=== PATIENT | female | born 1940 | race Caucasian/White ===

== ENCOUNTER 2019-03-01 16:27 | Emergency (ER) | payer MEDICARE, SELFPAY ==
[2019-03-01 16:38] VITALS: BP 163/61; PULSE 72; RESP 16; TEMP 36.7; O2SAT 100
--- NOTE | 2019-03-01 17:21 | DI.CT.S_ITS ---
PROCEDURE: CT CERVICAL SPINE WO CON INDICATIONS: fall + etoh TECHNIQUE: Noncontrast 3 mm thick sections acquired from the skull base to the T4 level. Sagittal and coronal reformats were then constructed. For radiation dose reduction, the following was used: automated exposure control, adjustment of mA and/or kV according to patient size. COMPARISON: 09/12/13. FINDINGS: Image quality: Excellent. Bones: No fractures or dislocations. Visualized superior ribs are intact. Multilevel cervical spondylosis. Craniocervical junction is intact. Soft tissues: Prevertebral soft tissues are normal in thickness. No paravertebral hematomas. No apical pneumothoraces. IMPRESSION: Cervical spine without acute fracture or malalignment. Dictated by: Jitendra Muniz M.D. on 03/01/2019 at 18:52 Approved by: Jitendra Muniz M.D. on 03/01/2019 at 18:54
--- NOTE | 2019-03-01 17:21 | DI.RAD.S_ITS ---
PROCEDURE: XR CHEST 1V INDICATIONS: fall, +etoh TECHNIQUE: One view of the chest was acquired. COMPARISON: None. FINDINGS: Surgical changes and devices: None. Lungs and pleura: The mild diffuse interstitial prominence. No focal consolidation.. No pleural effusions or pneumothorax. Mediastinum: Mediastinal contours appear normal. Heart size is normal. Bones and chest wall: No suspicious bony lesions. Overlying soft tissues appear unremarkable. IMPRESSION: Mild diffuse interstitial prominence which may represent chronic interstitial process versus inflammatory/infectious process or early edema. No focal consolidation. Otherwise, no radiographic evidence for acute traumatic injuries. Dictated by: Jitendra Muniz M.D. on 03/01/2019 at 21:01 Approved by: Jitendra Muniz M.D. on 03/01/2019 at 21:04
--- NOTE | 2019-03-01 17:21 | DI.RAD.S_ITS ---
PROCEDURE: XR PELVIS 1-2V INDICATIONS: fall, +etoh TECHNIQUE: One view(s) of the pelvis acquired. COMPARISON: None. FINDINGS: Bones: No fractures or dislocations. No suspicious bony lesions. Soft tissues: Visualized bowel gas pattern is normal. No suspicious soft tissue calcifications. IMPRESSION: No acute fracture identified in this limited single view of the pelvis. Consider dedicated imaging of the hip if there is persistent clinical concern. Dictated by: Jitendra Muniz M.D. on 03/01/2019 at 21:00 Approved by: Jitendra Muniz M.D. on 03/01/2019 at 21:01
[2019-03-01 17:27] LABS: Add Manual Diff / Slide Review NO; Basophils Absolute Auto 0 /uL (0-100); Basophils Percent Auto 0.5 % (0-2); Eosinophils Absolute Auto 0 /uL (0-450); Eosinophils Percent Auto 0.4 % (2-4); Hematocrit 38.8 % (36-46); Hemoglobin 12.8 g/dL (12.0-16.0); Lymphocytes Absolute Auto 600 /uL (1100-4500); Lymphocytes Percent Auto 8.1 % (25-40); Mean Corpuscular HGB Conc 32.9 % (30-36); Mean Corpuscular Hemoglobin 30.9 PG (26-34); Mean Corpuscular Volume 93.7 fL (80-100); Monocytes Absolute Auto 600 /uL (0-900); Neutrophils Absolute Auto 5600 /uL (1500-7000); Platelet Count 296 X10^3/uL (150-400); Red Blood Cell Count 4.14 X10^6/uL (4.0-5.2); Red Cell Distribution Width 12.7 % (11.6-14.8); White Blood Cell Count 6.8 X10^3/uL (4.5-11.0)
[2019-03-01 17:31] LABS: Ethanol (ETOH) 14 mg/dL
[2019-03-01 17:32] LABS: Alanine Aminotransferase 36 IU/L (9-52); Albumin 4.2 g/dL (3.5-5.0); Albumin Globulin Ratio 1.3 (1.0-2.8); Alkaline Phosphatase 100 U/L (38-126); Aspartate Aminotransferase 42 IU/L (14-36); BUN Creatinine Ratio 13.3 (6-22); Bilirubin Total 0.6 mg/dL (0.2-1.3); Blood Urea Nitrogen 16 mg/dL (7-17); Calcium 9.1 mg/dL (8.4-10.2); Carbon Dioxide 22 mmol/L (22-32); Chloride 97 mmol/L (98-107); Creatine Kinase 141 U/L (30-135); Estimated Glomerular Filt Rate 43.4 mL/min (>60); Globulin 3.3 g/dL (1.7-4.1); Glucose 86 mg/dL (80-110); PTT Partial Thromboplastin Tim 27 SECONDS (26.4-36.2); Sodium 131 mmol/L (137-145); Total Protein 7.5 g/dL (6.3-8.2)
[2019-03-01 17:33] LABS: HEMOLYSIS 59 (0-50)
[2019-03-01 17:44] LABS: Troponin I < 0.012 ng/mL (0.01-0.034)
[2019-03-01 17:48] LABS: Creatine Kinase MB 2.76 ng/mL (<2.37)
[2019-03-01] MEDS: TET,DIPH,PERTUSS(ACELL),VAC/PF 0.5 ML SYRINGE IM (18:03)
--- NOTE | 2019-03-01 18:08 | DI.CT.S_ITS ---
PROCEDURE: CT HEAD/BRAIN WO CON INDICATIONS: falls, ?etoh TECHNIQUE: Noncontrast 4.5 mm thick angled axial sections acquired from the foramen magnum to the vertex, with coronal and sagittal reformats. For radiation dose reduction, the following was used: automated exposure control, adjustment of mA and/or kV according to patient size. COMPARISON: None. FINDINGS: Image quality: Excellent. CSF spaces: Basal cisterns are patent. No extra-axial fluid collections. The ventricles are symmetric in size and shape. Brain: No intracranial bleeds or masses. There is cerebral volume loss for age, with resultant ventricular and sulcal prominence. Stable encephalomalacia involving the left frontoparietal region. There are periventricular and deep white matter chronic small vessel ischemic changes. There is intracranial internal carotid artery atherosclerosis. Skull and face: Stable post surgical changes of left frontoparietal craniotomy. Calvarium and visualized facial bones appear intact, without suspicious lesions. Sinuses: Visualized sinuses and mastoids are clear. IMPRESSION: 1. CT head without acute intracranial abnormalities. 2. Stable postsurgical changes of the left frontoparietal region with associated encephalomalacia. 3. Stable age-related senescent changes and sequela of chronic small vessel ischemic disease. Dictated by: Jitendra Muniz M.D. on 03/01/2019 at 18:50 Approved by: Jitendra Muniz M.D. on 03/01/2019 at 18:52
[2019-03-01 18:09] LABS: Urine Amphetamines Negative (Negative); Urine Barbiturates Negative (Negative); Urine Benzodiazepines Negative (Negative); Urine Cocaine Negative (Negative); Urine MDMA Negative (Negative); Urine Methadone Negative (Negative); Urine Methamphetamines Negative (Negative); Urine Morphine/Opi cutoff 2000 Negative (Negative); Urine Oxycodone Positive (Negative); Urine Phencyclidine Negative (Negative); Urine Tetrahydrocannabinol Negative (Negative); Urine Tricyclic Antidepressant Negative (Negative)
[2019-03-01 19:30] VITALS: BP 158/52; PULSE 73; O2SAT 100
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
== END 2019-03-01 20:20 | disposition home or self-care (01) ==
PROVIDERS: Emergency Provider Nurse Practitioner Family; Family Provider Family Medicine; PCP Family Medicine
DX: S01.01XA Laceration without foreign body of scalp, initial encounter (principal); W19.XXXA Unspecified fall, initial encounter; R03.0 Elevated blood-pressure reading, without diagnosis of hypertension; F10.129 Alcohol abuse with intoxication, unspecified; F11.90 Opioid use, unspecified, uncomplicated; V89.2XXA Person injured in unspecified motor-vehicle accident, traffic, initial encounter; Z23 Encounter for immunization
CPT/HCPCS: 12001; 70450; 71045; 72125; 72170; 80053; 80305; 80320; 81003; 82550; 82553; 84484; 85025; 85610; 85730; 90471; 93005; 99283; 99285; 90715

== ENCOUNTER 2019-04-12 22:46 | Emergency (ER) | payer MEDICARE, SELFPAY ==
[2019-04-12 22:50] VITALS: BP 133/56; PULSE 79; RESP 18; TEMP 36.7; O2SAT 99
--- NOTE | 2019-04-12 23:02 | ED.FALL ---
HPI - Fall General Chief Complaint: Fall Stated Complaint: GLF, hit her head Time Seen by Provider: 04/12/19 23:01 Source: patient Mode of arrival: ambulatory Limitations: no limitations History of Present Illness HPI Narrative: Patient is a 79-year-old male who presents after ground level fall. He was actually upstairs visiting her she when she rolled out of bed hitting her head on the right side. No loss of consciousness. No sign of contusion no neck pain. She is a little confused. No other signs of injury or trauma. MD complaint: fall Onset (ago): minute(s) Fall from: out of bed Related Data Home Medications Medication Instructions Recorded Confirmed [estradiol cream] 0.01 % VAGINAL #0 08/22/17 Previous Rx's Medication Instructions Recorded hydrocodone-acetaminophen [[place]] 1 tab PO Q6H PRN #6 tab 08/24/16 Allergies Allergy/AdvReac Type Severity Reaction Status Date / Time clavulanic acid Allergy Unknown Unverified 02/05/18 11:52 [CLAVULANIC ACID] nitrofurazone [NITROFURAZONE] Allergy Unknown Unverified 02/05/18 11:52 Review of Systems Review of Systems GENERAL: Denies chills, fatigue, malaise, fever, sweats, travel HEENT: Denies sinus pain, ear pain, sore throat, difficulty swallowing, neck pain RESPIRATORY: Denies dyspnea, cough, wheezing, hemoptysis, sputum. CARDIOVASCULAR: Denies chest pain, palpitations, orthopnea, edema GASTROINTESTINAL: Denies nausea, vomiting, abdominal pain, diarrhea, constipation, melena. : Denies dysuria, frequency, incontinence, hematuria, urinary retention, flank pain. MUSCULOSKELETAL: Denies weakness, joint pain, or bony pain SKIN: No rash, no erythema, no pruritus NEUROLOGIC: See HPI PSYCHIATRIC: No concerning psychosocial issues. 12 point review of systems is negative except for those stated above and HPI Exam Initial Vital Signs Initial Vital Signs: Vital Signs Temperature 98.0 F 04/12/19 22:50 Pulse Rate 79 04/12/19 22:50 Respiratory Rate 18 04/12/19 22:50 Blood Pressure 133/56 L 04/12/19 22:50 Pulse Oximetry 99 04/12/19 22:50 GENERAL: Alert well-appearing elderly female and in no acute distress. HEENT: Head atraumatic, no sign of contusion abrasion depression EOMI, pupils reactive, face symmetric, moist mucous membranes NECK: No vertebral tenderness no step-offs full range of motion CARDIOVASCULAR: Regular rate and rhythm without murmurs, rubs or gallops. RESPIRATORY: Breath sounds equal bilaterally, no wheezes rales or rhonchi. ABDOMEN: Soft, nontender. Normoactive bowel sounds all 4 quadrants. No guarding or rebound. EXTREMITIES: Normal range of motion, no clubbing or edema. Neurovascularly intact NEUROLOGICAL: Alert and oriented x4.Normal gait and speech. Cranial nerves II through XII grossly intact. Supervisor Cell [employer]fficiency strength equal bilaterally able to push and pull equally lower extremity strength equal SKIN: Warm, dry, no laceration, no petechiae, no rashes or lesions. [facility] Medical History Hyperlipidemia (Acute) Hypertension (Acute) Surgical History Status post appendectomy Status post tonsillectomy and adenoidectomy Social History Smoking Status: Never smoker Social History Smoking Status: Never smoker Course Orders Ordered: ED Orders 04/12/19 23:07 CT head/brain wo con Stat Discontinued Medications Acetaminophen (Tylenol) 650 mg PO NOW ONE Stop: 04/12/19 23:08 Last Admin: 04/13/19 00:04 Dose: 650 mg Vital Signs - 8 hr 04/12/19 22:50 04/13/19 00:05 Temperature 98.0 F Pulse Rate 79 78 Respiratory Rate 18 14 Blood Pressure 133/56 L 131/66 Pulse Oximetry 99 97 MDM - Fall Imaging Data CT scan - head: 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 Narrative Medical decision making narrative: Patient ambulatory to the restroom without any difficulty. There is really no sign of trauma. This time she is appropriate to return back to her 's room. Discharge Plan Departure Patient Disposition: Home Clinical Impression: Head injury Qualifiers: Encounter type: initial encounter Qualified Code(s): S09.90XA - Unspecified injury of head, initial encounter Discharge Date/Time: 04/13/19 00:05 Interventions: ED Discharge Assessment Last Done: 04/13/19 00:05 Instructions: Closed Head Injury Activity Restrictions/Additional Instructions: *You have been diagnosed with closed head injury *Continue to take medications as directed *Follow up with your primary care provider in 2-3 days *Return to ER if you should have increasing confusion, worsening headache or any new, worsening or concerning symptoms Prescriptions: No Action hydrocodone-acetaminophen [P[place]] 5 MG/325 MG tablet 1 tab PO Q6H PRNQty: 6 RF: 0 [estradiol cream] 0.01 % Vaginal Qty: 0 RF: 0 Referrals: Bo Henson MD [Primary Care Provider] -
--- NOTE | 2019-04-12 23:07 | DI.CT.S_ITS ---
PROCEDURE: CT HEAD/BRAIN WO CON INDICATIONS: fall hit head TECHNIQUE: Noncontrast 4.5 mm thick angled axial sections acquired from the foramen magnum to the vertex, with coronal and sagittal reformats. For radiation dose reduction, the following was used: automated exposure control, adjustment of mA and/or kV according to patient size. COMPARISON: [facility], CT, CT HEAD/BRAIN WO CON, 03/01/2019, 18:19. FINDINGS: Image quality: Excellent. CSF spaces: Basal cisterns are patent. No extra-axial fluid collections. The ventricles are symmetric in size and shape. Brain: No intracranial bleeds or masses. There is cerebral volume loss for age, with resultant ventricular and sulcal prominence. There are periventricular and deep white matter chronic small vessel ischemic changes. 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 There is intracranial internal carotid artery atherosclerosis. Skull: Postsurgical changes compatible with prior left frontal-temporal craniotomy are stable. The visualized facial bones appear intact, without suspicious lesions. Sinuses: Visualized sinuses and mastoids are clear. IMPRESSION: No acute intracranial disease process. Dictated by: Inga Appiah MD, PhD on 04/13/2019 at 7:37 Approved by: Inga Appiah MD, PhD on 04/13/2019 at 7:39
[2019-04-13] MEDS: ACETAMINOPHEN 325 MG TABLET 650 MG PO (00:04)
[2019-04-13 00:05] VITALS: BP 131/66; PULSE 78; RESP 14; O2SAT 97
--- NOTE | 2019-04-13 00:09 | ED_ITS ---
HPI - Fall General Chief Complaint: Fall Stated Complaint: GLF, hit her head Time Seen by Provider: 04/12/19 23:01 Source: patient Mode of arrival: ambulatory Limitations: no limitations History of Present Illness HPI Narrative: Patient is a 79-year-old male who presents after ground level fall. He was actually upstairs visiting her she when she rolled out of bed hitting her head on the right side. No loss of consciousness. No sign of contusion no neck pain. She is a little confused. No other signs of injury or trauma. MD complaint: fall Onset (ago): minute(s) Fall from: out of bed Related Data Home Medications Medication Instructions Recorded Confirmed [estradiol cream] 0.01 % VAGINAL #0 08/22/17 Previous Rx's Medication Instructions Recorded hydrocodone-acetaminophen [[place]] 1 tab PO Q6H PRN #6 tab 08/24/16 Allergies Allergy/AdvReac Type Severity Reaction Status Date / Time clavulanic acid Allergy Unknown Unverified 02/05/18 11:52 [CLAVULANIC ACID] nitrofurazone [NITROFURAZONE] Allergy Unknown Unverified 02/05/18 11:52 Review of Systems Review of Systems GENERAL: Denies chills, fatigue, malaise, fever, sweats, travel HEENT: Denies sinus pain, ear pain, sore throat, difficulty swallowing, neck pain RESPIRATORY: Denies dyspnea, cough, wheezing, hemoptysis, sputum. CARDIOVASCULAR: Denies chest pain, palpitations, orthopnea, edema GASTROINTESTINAL: Denies nausea, vomiting, abdominal pain, diarrhea, constipation, melena. : Denies dysuria, frequency, incontinence, hematuria, urinary retention, flank pain. MUSCULOSKELETAL: Denies weakness, joint pain, or bony pain SKIN: No rash, no erythema, no pruritus NEUROLOGIC: See HPI PSYCHIATRIC: No concerning psychosocial issues. 12 point review of systems is negative except for those stated above and HPI Exam Initial Vital Signs Initial Vital Signs: Vital Signs Temperature 98.0 F 04/12/19 22:50 Pulse Rate 79 04/12/19 22:50 Respiratory Rate 18 04/12/19 22:50 Blood Pressure 133/56 L 04/12/19 22:50 Pulse Oximetry 99 04/12/19 22:50 GENERAL: Alert well-appearing elderly female and in no acute distress. HEENT: Head atraumatic, no sign of contusion abrasion depression EOMI, pupils reactive, face symmetric, moist mucous membranes NECK: No vertebral tenderness no step-offs full range of motion CARDIOVASCULAR: Regular rate and rhythm without murmurs, rubs or gallops. RESPIRATORY: Breath sounds equal bilaterally, no wheezes rales or rhonchi. ABDOMEN: Soft, nontender. Normoactive bowel sounds all 4 quadrants. No guarding or rebound. EXTREMITIES: Normal range of motion, no clubbing or edema. Neurovascularly intact NEUROLOGICAL: Alert and oriented x4.Normal gait and speech. Cranial nerves II through XII grossly intact. Translator strength equal bilaterally able to push and pull equally lower extremity strength equal SKIN: Warm, dry, no laceration, no petechiae, no rashes or lesions. [facility] Medical History Hyperlipidemia (Acute) Hypertension (Acute) Surgical History Status post appendectomy Status post tonsillectomy and adenoidectomy Social History Smoking Status: Never smoker Social History Smoking Status: Never smoker Course Orders Ordered: ED Orders 04/12/19 23:07 CT head/brain wo con Stat Discontinued Medications Acetaminophen (Tylenol) 650 mg PO NOW ONE Stop: 04/12/19 23:08 Last Admin: 04/13/19 00:04 Dose: 650 mg Vital Signs - 8 hr 04/12/19 22:50 04/13/19 00:05 Temperature 98.0 F Pulse Rate 79 78 Respiratory Rate 18 14 Blood Pressure 133/56 L 131/66 Pulse Oximetry 99 97 MDM - Fall Imaging Data CT scan - head: 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 There is really no sign of trauma. This time she is appropriate to return back to her 's room. Discharge Plan Departure Patient Disposition: Home Clinical Impression: Head injury Qualifiers: Encounter type: initial encounter Qualified Code(s): S09.90XA - Unspecified injury of head, initial encounter Discharge Date/Time: 04/13/19 00:05 Interventions: ED Discharge Assessment Last Done: 04/13/19 00:05 Instructions: Closed Head Injury Activity Restrictions/Additional Instructions: *You have been diagnosed with closed head injury *Continue to take medications as directed *Follow up with your primary care provider in 2-3 days *Return to ER if you should have increasing confusion, worsening headache or any new, worsening or concerning symptoms Prescriptions: No Action hydrocodone-acetaminophen [[place]] 5 MG/325 MG tablet 1 tab PO Q6H PRNQty: 6 RF: 0 [estradiol cream] 0.01 % Vaginal Qty: 0 RF: 0 Referrals: Bo Henson MD [Primary Care Provider] -
== END 2019-04-13 00:05 | disposition home or self-care (01) ==
PROVIDERS: Emergency Provider Emergency Medicine; Family Provider Family Medicine; PCP Family Medicine
DX: S09.90XA Unspecified injury of head, initial encounter (principal); W06.XXXA Fall from bed, initial encounter
CPT/HCPCS: 70450; 99283; 99284

== ENCOUNTER 2020-08-07 09:02 | Emergency (ER) | payer MEDICARE, SELFPAY ==
[2020-08-07] VITALS (10 sets, daily range): BP systolic 96–153; BP diastolic 51–65; PULSE 63–89; RESP 15–24; TEMP 36.7; O2SAT 93–99; BMI 22.8
--- NOTE | 2020-08-07 09:35 | ED.WOUNDLAC ---
HPI - Wound/Laceration General Chief Complaint: Wound/Laceration Stated Complaint: Fall, laceration R eyebrow Time Seen by Provider: 08/07/20 09:14 Source: patient and EMS Mode of arrival: EMS Limitations: no limitations History of Present Illness HPI narrative: This is a 80-year-old female who comes to the emergency department with complaint of ground level fall. Patient states she did have some alcohol earlier in the evening she describes having too large or near beers. Patient states that she lost her balance and fell to the floor. She denies any headache, neck pain or back pain or injuries other than the laceration to her forehead. Patient states that she has remote history of a large meningioma excised and then had a fall down stairs she is unclear on her medical history but per report from EMS she had a head bleed at that time. She does take an aspirin daily. Patient states she also takes lovastatin and lisinopril. She states that she does not feel she needs to be here, she called EMS because she could not get off the ground herself and her is bed bound and he is unable to assist her in getting off floor. Patient denies any nausea or vomiting, no vision changes, no chest pain or shortness of breath. No urinary or GI issues. Patient lives on [address] [facility]. She states that she is allergic to Augmentin and nitrofurantoin. She has had some other orthopedic surgeries. She states she currently feels safe at home to myself but expressed that her is often angry at home. Patient's tetanus was updated last month. Related Data Home Medications Medication Instructions Recorded Confirmed lovastatin 20 mg tablet 20 mg PO DAILY 04/27/19 04/27/19 lisinopril 20 mg tablet 20 mg PO DAILY 05/14/19 05/14/19 Allergies Allergy/AdvReac Type Severity Reaction Status Date / Time clavulanic acid Allergy Unknown Verified 08/07/20 09:19 [CLAVULANIC ACID] nitrofurazone [NITROFURAZONE] Allergy Unknown Verified 08/07/20 09:19 Review of Systems Review of Systems ROS Unobtainable: All systems reviewed & are unremarkable except as noted in HPI and below Patient History Medical History Hyperlipidemia (Acute) Hypertension (Acute) Surgical History Status post appendectomy Status post tonsillectomy and adenoidectomy Social History Smoking Status: Never smoker Smoking Status: Never smoker alcohol intake frequency: 0-2 drinks per day Substance Use Type: does not use Exam Narrative Exam Narrative: GEN: Patient appears in mild distress. HEAD: No evidence of trauma except as below, no raccoon/Caldwell sign. NECK: Nontender, painless range of motion, trachea midline Negative Nexus criteria, there is no line tenderness, distracting injury, altered mental status, neuro deficit, recent EtOH. EYES: PERRLA, EOMI ENT: External inspection normal except for a superficial laceration in W shaped above the right eyebrow on the forehead, trachea is midline, TM's are normal no hemotypanum, Nares are clear, no septal hematoma, no dental or oral injury, airway is normal and with normal occlusion, No bony tenderness RESP: Chest is nontender and has symmetric movement, no ecchymosis, breath sounds are normal no crackles, wheezes or rales CVS: Heart sounds are normal, no murmur noted, No JVD. ABG/GI: Nontender, soft, normal bowel sounds, no distention, no organomegaly, pelvic rock is negative NEURO: Oriented AOx3, neuro is grossly intact, sensation and motor is normal all 4 extremities moving, cranial nerves II through XII are intact, GCS is 15 PSYCH: Normal mood and affect SKIN: Intact, warm and dry, no crepitus and without decubitus BACK: No CVA tenderness, no vertebral tenderness, no step-off's, no crepitus EXT: Atraumatic, hips are nontender, no pedal edema, normal color and temperature, normal range of motion of extremities with normal tendon exam, 2+ pulses in all four extremities Initial Vital Signs Initial Vital Signs: Vital Signs Temperature 98.0 F 08/07/20 09:14 Pulse Rate 72 08/07/20 09:14 Respiratory Rate 15 08/07/20 09:14 Blood Pressure 124/58 L 08/07/20 09:14 Pulse Oximetry 98 08/07/20 09:14 Scores GCS [place] coma scale eye opening: Spontaneous [place] coma scale verbal response: Orientated [place] coma scale motor response: Obey commands [place] coma scale total score: 15 Course Orders Ordered: ED Orders 08/07/20 09:13 EKG-12 Lead Stat 08/07/20 09:20 UA Complete [Urinalysis and Microscopic] Stat Urine Culture Stat Urine Drug Screen, Rapid Stat 08/07/20 09:36 CT cervical spine wo con Stat CT head/brain wo con Stat 08/07/20 09:41 Consult to [employer]KE [employer]ER - Leather Softener Stat 08/07/20 09:48 Complete Blood Count AUTO DIFF Stat Comprehensive Metabolic Panel Stat Ethanol (ETOH) Stat Partial Thromboplastin Time Stat Prothrombin Time INR Stat Troponin & CK Cardiac Panel Stat Type and Screen Stat Reevaluation(s) Reevaluation #1: Patient is doing well no complaints currently. Time: 11:23 Reevaluation #2: Patient was able to ambulate without assistance in the department. She did use her walker. Patient would like to return home. We placed Dermabond on her laceration on her forehead. Patient and I discussed her elevated liver enzymes in need for follow-up and that I suspect this is related to her alcohol use. Patient states she would like to take [employer] to the [place] and she will have someone pick her up on the other side. Time: 12:48 Vital Signs Vital signs: Vital Signs - 8 hr 08/07/20 10:20 08/07/20 10:22 08/07/20 10:30 Pulse Rate 65 64 Respiratory Rate 22 17 Blood Pressure 135/63 111/54 L Pulse Oximetry 96 97 08/07/20 11:00 08/07/20 11:01 08/07/20 11:30 Pulse Rate 70 70 64 Respiratory Rate 22 24 15 Blood Pressure 153/64 H Pulse Oximetry 99 98 95 08/07/20 11:31 08/07/20 12:00 08/07/20 12:01 Pulse Rate 63 66 89 Respiratory Rate 15 20 23 Blood Pressure 96/51 L 116/65 Pulse Oximetry 95 95 93 MDM - Wound/Laceration Lab Data Attestation: I reviewed the patient's lab results. Lab results narrative: Labs show slightly elevated neutrophil count, no anemia, normal white count with normal platelets. Coags are normal. Chemistry shows a sodium, LFTs are elevated in the 200 range with alk-phos of 128. CK-MB is 2.67 was elevated prior stay, bilirubin is normal and patient's troponin is negative. Result diagrams: 08/07/20 09:48 08/07/20 09:48 Labs: Lab Results 08/07/20 08/07/20 08/07/20 Range/Units 09:20 09:20 09:48 WBC 10.6 (4.5-11.0) X10^3/uL RBC 4.29 (4.0-5.2) X10^6/uL Hgb 14.3 (12.0-16.0) g/dL Hct 42.3 (36-46) % MCV 98.7 (80-100) fL MCH 33.3 (26-34) PG MCHC 33.7 (30-36) % RDW 13.1 (11.6-14.8) % Plt Count 264 (150-400) X10^3/uL Neut % (Auto) 83.7 H (50-75) % Lymph % (Auto) 8.3 L (25-40) % [place] % (Auto) 6.7 (3-14) % Eos % (Auto) 0.8 L (2-4) % Baso % (Auto) 0.5 (0-2) % Neut # (Auto) 8900 H (0444-3720) /uL Lymph # (Auto) 900 L (2803-5362) /uL [place] # (Auto) 700 (0-900) /uL Eos # (Auto) 100 (0-450) /uL Baso # (Auto) 0 (0-100) /uL PT (10.1-12.7) SECONDS INR (0.9-1.3) APTT (26.4-36.2) SECONDS Sodium (137-145) mmol/L Potassium (3.4-5.1) mmol/L Chloride (98-107) mmol/L Carbon Dioxide (22-32) mmol/L BUN (7-17) mg/dL Creatinine (0.52-1.04) mg/dL Estimated GFR (>60) mL/min BUN/Creatinine Ratio (6-22) Glucose (80-110) mg/dL Calcium (8.4-10.2) mg/dL Total Bilirubin (0.2-1.3) mg/dL AST (14-36) IU/L ALT (<35) IU/L Alkaline Phosphatase (38-126) U/L Total Creatine Kinase (30-135) U/L CK-MB (CK-2) (<2.37) ng/mL CK-MB (CK-2) Rel Index (1.5-5.0) % Troponin I (0.01-0.034) ng/mL Total Protein (6.3-8.2) g/dL Albumin (3.5-5.0) g/dL Globulin (1.7-4.1) g/dL Albumin/Globulin Ratio (1.0-2.8) Urine Color Yellow Urine Appearance Slightly cloudy Urine pH 5.0 (4.5-8.0) Ur Specific [place] <=1.005 (1.000-1.035) Urine Protein Negative (Negative) Urine Glucose (UA) Negative (Negative) g/dL Urine Ketones Negative (NEGATIVE) Urine Occult Blood 1+ H (Negative) Urine Nitrate Negative (Negative) Urine Bilirubin Negative (NEGATIVE) Urine Urobilinogen 0.2 (0.2) E.U./dL Ur Leukocyte Esterase 2+ H (NEGATIVE) Urine RBC 0-1/hpf (0-5/HPF) Urine WBC 5-10/hpf H (0-5/HPF) Ur Squamous Epith Cells 1-5 /hpf (0-5/HPF) Urine Bacteria Occasional (0-1) (None) Ur Culture Indicated? Specimen cultured U Opiates 300ng/mL cut Negative (Negative) Ur Oxycodone Screen Negative (Negative) Urine Methadone Screen Negative (Negative) Ur Barbiturates Screen Negative (Negative) U Tricyclic Antidepress Negative (Negative) Ur Phencyclidine Scrn Negative (Negative) Ur Amphetamines Screen Negative (Negative) U Methamphetamines Scrn Negative (Negative) Ur MDMA Scrn (Ecstasy) Negative (Negative) U Benzodiazepines Scrn Negative (Negative) Urine Cocaine Screen Negative (Negative) U Marijuana (THC) Screen Negative (Negative) Ethyl Alcohol ( - 10) mg/dL Blood Type Antibody Screen 08/07/20 08/07/20 08/07/20 Range/Units 09:48 09:48 09:48 WBC (4.5-11.0) X10^3/uL RBC (4.0-5.2) X10^6/uL Hgb (12.0-16.0) g/dL Hct (36-46) % MCV (80-100) fL MCH (26-34) PG MCHC (30-36) % RDW (11.6-14.8) % Plt Count (150-400) X10^3/uL Neut % (Auto) (50-75) % Lymph % (Auto) (25-40) % [place] % (Auto) (3-14) % Eos % (Auto) (2-4) % Baso % (Auto) (0-2) % Neut # (Auto) (6483-0967) /uL Lymph # (Auto) (7495-1789) /uL [place] # (Auto) (0-900) /uL Eos # (Auto) (0-450) /uL Baso # (Auto) (0-100) /uL PT 11.6 (10.1-12.7) SECONDS INR 1.0 (0.9-1.3) APTT 30 D (26.4-36.2) SECONDS Sodium 135 L (137-145) mmol/L Potassium 4.5 (3.4-5.1) mmol/L Chloride 101 (98-107) mmol/L Carbon Dioxide 26 (22-32) mmol/L BUN 8 (7-17) mg/dL Creatinine 0.76 (0.52-1.04) mg/dL Estimated GFR > 60.0 (>60) mL/min BUN/Creatinine Ratio 10.5 (6-22) Glucose 103 (80-110) mg/dL Calcium 9.3 (8.4-10.2) mg/dL Total Bilirubin 0.6 (0.2-1.3) mg/dL AST 209 H (14-36) IU/L ALT 238 H (<35) IU/L Alkaline Phosphatase 128 H (38-126) U/L Total Creatine Kinase (30-135) U/L CK-MB (CK-2) (<2.37) ng/mL CK-MB (CK-2) Rel Index (1.5-5.0) % Troponin I (0.01-0.034) ng/mL Total Protein 8.1 (6.3-8.2) g/dL Albumin 4.4 (3.5-5.0) g/dL Globulin 3.7 (1.7-4.1) g/dL Albumin/Globulin Ratio 1.2 (1.0-2.8) Urine Color Urine Appearance Urine pH (4.5-8.0) Ur Specific [place] (1.000-1.035) Urine Protein (Negative) Urine Glucose (UA) (Negative) g/dL Urine Ketones (NEGATIVE) Urine Occult Blood (Negative) Urine Nitrate (Negative) Urine Bilirubin (NEGATIVE) Urine Urobilinogen (0.2) E.U./dL Ur Leukocyte Esterase (NEGATIVE) Urine RBC (0-5/HPF) Urine WBC (0-5/HPF) Ur Squamous Epith Cells (0-5/HPF) Urine Bacteria (None) Ur Culture Indicated? U Opiates 300ng/mL cut (Negative) Ur Oxycodone Screen (Negative) Urine Methadone Screen (Negative) Ur Barbiturates Screen (Negative) U Tricyclic Antidepress (Negative) Ur Phencyclidine Scrn (Negative) Ur Amphetamines Screen (Negative) U Methamphetamines Scrn (Negative) Ur MDMA Scrn (Ecstasy) (Negative) U Benzodiazepines Scrn (Negative) Urine Cocaine Screen (Negative) U Marijuana (THC) Screen (Negative) Ethyl Alcohol 185 H ( - 10) mg/dL Blood Type Antibody Screen 08/07/20 08/07/20 Range/Units 09:48 09:48 WBC (4.5-11.0) X10^3/uL RBC (4.0-5.2) X10^6/uL Hgb (12.0-16.0) g/dL Hct (36-46) % MCV (80-100) fL MCH (26-34) PG MCHC (30-36) % RDW (11.6-14.8) % Plt Count (150-400) X10^3/uL Neut % (Auto) (50-75) % Lymph % (Auto) (25-40) % [place] % (Auto) (3-14) % Eos % (Auto) (2-4) % Baso % (Auto) (0-2) % Neut # (Auto) (4522-4766) /uL Lymph # (Auto) (4648-1942) /uL [place] # (Auto) (0-900) /uL Eos # (Auto) (0-450) /uL Baso # (Auto) (0-100) /uL PT (10.1-12.7) SECONDS INR (0.9-1.3) APTT (26.4-36.2) SECONDS Sodium (137-145) mmol/L Potassium (3.4-5.1) mmol/L Chloride (98-107) mmol/L Carbon Dioxide (22-32) mmol/L BUN (7-17) mg/dL Creatinine (0.52-1.04) mg/dL Estimated GFR (>60) mL/min BUN/Creatinine Ratio (6-22) Glucose (80-110) mg/dL Calcium (8.4-10.2) mg/dL Total Bilirubin (0.2-1.3) mg/dL AST (14-36) IU/L ALT (<35) IU/L Alkaline Phosphatase (38-126) U/L Total Creatine Kinase 156 H (30-135) U/L CK-MB (CK-2) 3.67 H (<2.37) ng/mL CK-MB (CK-2) Rel Index 2.4 (1.5-5.0) % Troponin I < 0.012 (0.01-0.034) ng/mL Total Protein (6.3-8.2) g/dL Albumin (3.5-5.0) g/dL Globulin (1.7-4.1) g/dL Albumin/Globulin Ratio (1.0-2.8) Urine Color Urine Appearance Urine pH (4.5-8.0) Ur Specific [place] (1.000-1.035) Urine Protein (Negative) Urine Glucose (UA) (Negative) g/dL Urine Ketones (NEGATIVE) Urine Occult Blood (Negative) Urine Nitrate (Negative) Urine Bilirubin (NEGATIVE) Urine Urobilinogen (0.2) E.U./dL Ur Leukocyte Esterase (NEGATIVE) Urine RBC (0-5/HPF) Urine WBC (0-5/HPF) Ur Squamous Epith Cells (0-5/HPF) Urine Bacteria (None) Ur Culture Indicated? U Opiates 300ng/mL cut (Negative) Ur Oxycodone Screen (Negative) Urine Methadone Screen (Negative) Ur Barbiturates Screen (Negative) U Tricyclic Antidepress (Negative) Ur Phencyclidine Scrn (Negative) Ur Amphetamines Screen (Negative) U Methamphetamines Scrn (Negative) Ur MDMA Scrn (Ecstasy) (Negative) U Benzodiazepines Scrn (Negative) Urine Cocaine Screen (Negative) U Marijuana (THC) Screen (Negative) Ethyl Alcohol ( - 10) mg/dL Blood Type O Negative Antibody Screen Negative Imaging Data CT scan - head: Radiologist's Impression: [address] [address] [address] Scan Report Signed Patient: Sangeeta Roca [facility]#: [id number] : 1Acct:[id number] Age/Sex: 80 / FDate of Service: 08/07/20 Loc: ED Accession Number: [id number] Procedure: CT head/brain wo con Ordering Provider: Joann Cabrera D.O. PROCEDURE: CT HEAD/BRAIN WO CON INDICATIONS: Trauma, fall lac forehead, on asa, etoh, hx excised mengioma TECHNIQUE: Noncontrast 4.5 mm thick angled axial sections acquired from the foramen magnum to the vertex, with coronal and sagittal reformats. For radiation dose reduction, the following was used: automated exposure control, adjustment of mA and/or kV according to patient size. COMPARISON: [facility], CT, CT HEAD/BRAIN WO CON, 03/01/2019, 18:19. [facility], CT, CT HEAD/BRAIN WO CON, 04/12/2019, 23:21. FINDINGS: Image quality: Excellent. CSF spaces: Basal cisterns are patent. No new extra-axial fluid collections. There is mild cerebral volume loss, with resultant ventricular and sulcal prominence. Brain: No intracranial hemorrhage, mass, or mass effect. Left frontal temporal encephalomalacia appears similar to the prior studies. There are subcortical, periventricular and deep white matter hypodensities consistent with mild to moderate chronic small vessel ischemic changes. There is intracranial internal carotid artery atherosclerosis. Skull and face: Calvarium and visualized facial bones demonstrate no acute fractures. Postsurgical changes are redemonstrated status post left frontal temporal craniotomy with left temporal jessi holes. Sinuses: Visualized sinuses and mastoids are clear. IMPRESSION: 1. No acute intracranial abnormality. 2. Left frontal temporal encephalomalacia and postsurgical changes redemonstrated. Dictated by: Juan Hobbs M.D. on 08/07/2020 at 9:13 Approved by: Juan oHbbs M.D. on 08/07/2020 at 9:16 CT - cervical spine: Radiologist's Impression: [address] [address] [address] Scan Report Signed Patient: Sangeeta Roca [facility]#: [id number] : 1940Acct:[id number] Age/Sex: 80 / FDate of Service: 08/07/20 Loc: ED Accession Number: [id number] Procedure: CT cervical spine wo con Ordering Provider: Joann Cabrera D.O. PROCEDURE: CT CERVICAL SPINE WO CON INDICATIONS: Trauma TECHNIQUE: Noncontrast 3 mm thick sections acquired from the skull base to the T4 level. Sagittal and coronal reformats were then constructed. For radiation dose reduction, the following was used: automated exposure control, adjustment of mA and/or kV according to patient size. COMPARISON: [facility], CT, CT CERVICAL SPINE WO CON, 03/01/2019, 18:19. FINDINGS: Image quality: Excellent. Bones: No fractures or subluxation. Minimal anterolisthesis demonstrated at C2-C3 and C7-T1. There is minimal retrolisthesis at C3-C4 and C4-C5. The findings are similar to the prior study. Moderate to severe multilevel degenerative disc disease demonstrated within the mid and lower cervical spine. There is also moderate facet arthropathy throughout the cervical spine. Visualized superior ribs are intact. Soft tissues: Prevertebral soft tissues are normal in thickness. No paravertebral hematomas. No apical pneumothoraces. IMPRESSION: 1. No acute fracture or subluxation. 2. Minimal spondylolisthesis appears similar to the prior study. 3. Extensive multilevel degenerative changes redemonstrated throughout the cervical spine. Dictated by: Juan Hobbs M.D. on 08/07/2020 at 9:16 Approved by: Juan Hobbs M.D. on 08/07/2020 at 9:19 ECG Data Attestation: I personally reviewed and interpreted this ECG as follows: Prior ECG tracings: available for review Interpretation: Normal sinus rhythm, right bundle branch block. Rate of 75 DC 138 QRS of 128 QTC of 42. Q-waves noted in 2 3 and AVF. No new elevation appreciated. Patient has prior EKG available. [facility] Narrative Medical decision making narrative: Patient comes in today with describe loss of balance and fall. Patient did denies any injuries other than laceration over the eye. She states she contacted EMS because she could get herself off off the floor but feels that she does not need to be here currently. She is on anticoagulation and CT of the head and neck were ordered based on age. She does not currently have any neck or back pain. She has had prior intracranial surgery. No bleed or changes acutely are noted on her head CT or C-spine. Labs show elevated neutrophils, she also has elevated LFTs with normal bilirubin. Patient does admit to drinking alcohol. Discussed with social work at this time patient does not meet any admission criteria and she does not wish to be admitted. Head CT and C-spine so degenerative changes and likely postsurgical but no acute changes. Patient's labs show elevated LFTs. Discussed with patient and I discussed that she likely has a elevation secondary to drinking alcohol we also discussed that she needs to follow up with primary care which she [place] sure that they are not continuing to worsen. Patient is able to ambulate without difficulty using her walker. She is clear, appropriate and appears competent to make decisions at this time and would like to return home. She states she will follow up with Dr. Henson on the [facility]. Discharge Plan Departure Patient Disposition: Home Clinical Impression: Fall from ground level, Elevated liver enzymes Laceration of eyebrow, right Qualifiers: Encounter type: initial encounter Qualified Code(s): S01.111A - Laceration without foreign body of right eyelid and periocular area, initial encounter Discharge Date/Time: 08/07/20 13:24 Instructions: Alcohol Use Disorder, DI for Laceration Repair-Skin Glue Activity Restrictions/Additional Instructions: Follow-up with your primary care physician in the next week for recheck. Your liver enzymes today are elevated these need to be recheck, this is likely due to alcohol intake. Would recommend decreasing your alcohol intake at this time. Included in your discharge paperwork are options for additional assistance on the [place] to help you at this time, please feel free to contact them at any time. They may also be contacting you in the next week as discussed with the forensic social worker. Wound Care: Keep wound(s) clean and dry. Wash daily with soap and water only. Do not use over the counter products (alcohol or peroxide)on the wounds unless instructed by a physician. If wound condition worsens (increased/expanding redness, developing fluid blisters, or worsening pain), either contact your doctor for an urgent re-assessment , or return to the Emergency Department. Return to the Emergency Department for any new or worsening symptoms. Return if fever greater than 100.4 Fahrenheit, increased swelling, increasing pain or worsening symptoms such as increased discharge or spreading redness. Severe headaches, new lightheadedness, passing out, vision changes, new neck or back pain, persistent vomiting, new weakness numbness or other new or concerning symptoms. Prescriptions: No Action lovastatin 20 mg tablet 20 mg PO DAILY RF: 0 lisinopril 20 mg tablet 20 mg PO DAILY RF: 0 Referrals: Bo Henson MD [Primary Care Provider] -
[2020-08-07 09:50] LABS: Bilirubin Urine UA NEGATIVE (NEGATIVE); Color Urine UA YELLOW; Glucose Urine UA NEGATIVE (Negative); Ketones Urine UA NEGATIVE (NEGATIVE); Leukocyte Esterase Urine UA 2+ (NEGATIVE); Nitrite Urine UA NEGATIVE (Negative); Occult Blood Urine UA 1+ (Negative); Protein Urine UA NEGATIVE (Negative); Specific Gravity Urine UA <=1.005 (1.000-1.035); Urobilinogen Urine UA 0.2 E.U./dL (0.2)
[2020-08-07 09:56] LABS: UR Morphine/Opiate cutoff 300 Negative (Negative); Ur Creatinine Normal (Normal); Ur Specific Gravity Normal (Normal); Urine Amphetamines Negative (Negative); Urine Barbiturates Negative (Negative); Urine Benzodiazepines Negative (Negative); Urine Cocaine Negative (Negative); Urine MDMA Negative (Negative); Urine Methadone Negative (Negative); Urine Methamphetamines Negative (Negative); Urine Oxycodone Negative (Negative); Urine Phencyclidine Negative (Negative); Urine Tetrahydrocannabinol Negative (Negative); Urine Tricyclic Antidepressant Negative (Negative); Urine pH Normal (Normal)
[2020-08-07 10:02] LABS: Appearance Urine UA Slightly Cloudy
[2020-08-07 10:03] LABS: Add Manual Diff / Slide Review NO; Basophils Absolute Auto 0 /uL (0-100); Basophils Percent Auto 0.5 % (0-2); Eosinophils Absolute Auto 100 /uL (0-450); Eosinophils Percent Auto 0.8 % (2-4); Hematocrit 42.3 % (36-46); Hemoglobin 14.3 g/dL (12.0-16.0); Lymphocytes Absolute Auto 900 /uL (1100-4500); Lymphocytes Percent Auto 8.3 % (25-40); Mean Corpuscular HGB Conc 33.7 % (30-36); Mean Corpuscular Hemoglobin 33.3 PG (26-34); Mean Corpuscular Volume 98.7 fL (80-100); Monocytes Absolute Auto 700 /uL (0-900); Monocytes Percent Auto 6.7 % (3-14); Neutrophils Absolute Auto 8900 /uL (1500-7000); Neutrophils Percent Auto 83.7 % (50-75); Platelet Count 264 X10^3/uL (150-400); Red Blood Cell Count 4.29 X10^6/uL (4.0-5.2); Red Cell Distribution Width 13.1 % (11.6-14.8); White Blood Cell Count 10.6 X10^3/uL (4.5-11.0)
[2020-08-07 10:09] LABS: Bacteria Urine Occasional (0-1); Culture Indicated Urine Specimen Cultured; RBC Urine 0-1/HPF (0-5/HPF); Squamous Epithelial Cell Urine 1-5 /HPF (0-5/HPF); WBC Urine 5-10/HPF (0-5/HPF)
[2020-08-07 10:11] LABS: Prothrombin Time 11.6 SECONDS (10.1-12.7)
[2020-08-07 10:15] LABS: Creatine Kinase 156 U/L (30-135)
[2020-08-07 10:16] LABS: Alanine Aminotransferase 238 IU/L (<35); Albumin 4.4 g/dL (3.5-5.0); Albumin Globulin Ratio 1.2 (1.0-2.8); Alkaline Phosphatase 128 U/L (38-126); Aspartate Aminotransferase 209 IU/L (14-36); BUN Creatinine Ratio 10.5 (6-22); Bilirubin Total 0.6 mg/dL (0.2-1.3); Blood Urea Nitrogen 8 mg/dL (7-17); Calcium 9.3 mg/dL (8.4-10.2); Carbon Dioxide 26 mmol/L (22-32); Chloride 101 mmol/L (98-107); Estimated Glomerular Filt Rate > 60.0 mL/min (>60); Ethanol (ETOH) 185 mg/dL; Globulin 3.7 g/dL (1.7-4.1); Glucose 103 mg/dL (80-110); HEMOLYSIS 19 (0-50); Potassium 4.5 mmol/L (3.4-5.1); Sodium 135 mmol/L (137-145); Total Protein 8.1 g/dL (6.3-8.2)
[2020-08-07 10:20] LABS: PTT Partial Thromboplastin Tim 30 SECONDS (26.4-36.2)
[2020-08-07 10:27] LABS: Troponin I < 0.012 ng/mL (0.01-0.034)
[2020-08-07 10:31] LABS: CKMB % Relative Index 2.4 % (1.5-5.0); Creatine Kinase MB 3.67 ng/mL (<2.37)
--- NOTE | 2020-08-07 11:22 | PC.NURSE ---
TIAGO Lenz spent considerable time with patient providing resouces on [facility] to help with caregiver burnout. Patient was refered to TIAGO related to he difficult living situation. She made statements to this nurse that she is having a hard time coping with the stress of caring for her ill spouse and autistic adult child. She reports her is a very mean man. She moved to the [place] ago [place]
--- NOTE | 2020-08-07 11:48 | CM.SWNOTE ---
Patient is a 80 year old female who was admitted on 08/07/20 to [facility] ED for Fall, laceration of forehead. Pt has [employer] and [employer] for insurance and her PCP is Dr. Bo Henson. EMR was reviewed. Per ED MD, pt with ETOH with UDS negative accept for BAL of .185 at admit. Will ambulate pt when more medically stable towards likely d/c back home today. SLOPE TENDER met bedside with pt in ED room 06 and explained role and pt quite drowsy still and somnolent but confirms that she lives at home on [address] for the past 20 years with her (who is mostly bed/wheelchair bound) and her adult son with fairly high functioning autism. Pt is primary caregiver for both but spouse has a couple private pay caregivers who provide additional assist during the week. SLOPE TENDER inquired about pt's ETOH use and increased GLF in the past year and pt denies abuse of ETOH or that it is a contributing factor for increased fall risk. Pt brief in her answers initially but pt then confirms that she sometimes self medicates with alcohol due to her psychosocial stressors. Pt states that her is not very friendly or kind but denies any physical abuse or aggression. Pt states that her has begun discussing divorce and pt feels that she cannot even think about this as they have been for 50 years. Pt denies any extended family support or friend and is very socially isolated. Pt denies any hx of MH or CD treatment in the past and has typically managed everything on her own and has not reached out for support. SLOPE TENDER discussed the reality of Caregiver Burnout and the need for a support system to help reduce stress and alcohol use to self medicate. Pt confirms that she has not actively sought out any support but would be agreeable and willing to utilize community resources on [facility] [address] [facility] [address] [facility] if available. SLOPE TENDER printed copy of [facility] for caregiver support group, heart to hands program, volunteer opportunities, mental health counseling, etc. and highly encouraged pt to seek out resources that are available to her. Discussed at length the concerns with alcohol use to self medicate, isolation, and importance of support. Pt states she feels safe in her home environment and denies any S.I. or H.I. and would be agreeable with d/c home today. Pt also not concerned with son and spouse being home without her at this time as they know who to call if they need help and they are established with private caregivers at baseline. Plan: RN to get pt up mobilizing to confirm she can ambulate independently when medically appropriate towards plan of d/c home with community resources for increased support to reduce pt's isolation, drinking, and stress. TIAGO [place] Discharge Planning/Care Management SLOPE TENDER - Rabbit Fancier Assessment Start: 08/07/20 11:38 Freq: Status: Active Protocol: Document 08/07/20 11:39 BF (Rec: 08/07/20 11:48 BF [id number]) SLOPE TENDER/Rabbit Fancier Assessment Start date 08/07/20 Visit Start Time 11:00 End date 08/07/20 Visit End Time 11:30 Total time Care Management spent on 60 min patient visit-in minutes Presenting Problem Pt presents with GLF/head laceration with ETOH use Precipitating Event(s) Pt states she had a couple tall boys last night but does not feel that she was intoxicated or that the alcohol contributed to her GLF . Patient Strengths Patient has been the primary CG for her adult son with Autism and who is mostly bed/wheelchair bound and has managed the household for many years and to her for 50 years. Current Behavioral Health Provider(s) none Include Facility, Provider, Ph. # Rehab Facilities? ((Date(s), Location(s) denies ) History of Withdrawal? Seizures? denies Longest Period of Sobriety Pt denies any ETOH abuse issues or need for remaining sober Psychosocial information & Support Pt is very isloated without Systems any other extended family or social supports. Denies any friends or supportive connections. Pt's life is centered on her and adult son. School/Work Denies Legal Matters - Outstanding Issues denies Suicidal Ideation (Plan) No: denies Homicidal Ideation (Plan) No: denies Intervention SLOPE TENDER met bedside with pt and discussed her alcohol use and community resources, see note above. RA Plan SLOPE TENDER updated RN and MD and provided community resources for pt on [facility] for counseling, caregiver support group, and chemical dependency to utilize after discharge. See note above.
== END 2020-08-07 13:24 | disposition home or self-care (01) ==
PROVIDERS: Emergency Provider Emergency Medicine; Family Provider Family Medicine; PCP Family Medicine
DX: S01.111A Laceration without foreign body of right eyelid and periocular area, initial encounter (principal); W18.30XA Fall on same level, unspecified, initial encounter
CPT/HCPCS: 36415; 70450; 72125; 80053; 80305; 80320; 81001; 82550; 82553; 84484; 85025; 85610; 85730; 86850; 86900; 86901; 87086; 93005; 99283; 99284

== ENCOUNTER 2020-09-02 15:04 | Emergency (ER) | payer MEDICARE, SELFPAY ==
[2020-09-02] VITALS (8 sets, daily range): BP systolic 125–199; BP diastolic 56–84; PULSE 65–80; RESP 16–18; TEMP 36.4–37; O2SAT 97–99
--- NOTE | 2020-09-02 17:08 | DI.RAD.S_ITS ---
PROCEDURE: XR SACRUM COCCYX MIN 2V INDICATIONS: fall, pain on right hip, pelvis and lower back TECHNIQUE: 3 views of the sacrum and coccyx acquired. COMPARISON: [facility], CR, XR PELVIS WITH LATERAL HIP LEFT, 08/13/2018, 10:19. [facility], CR, XR LUMBAR SPINE 2-3V, 09/02/2020, 17:43. [facility], CR, XR HIP W PEL IF DONE RT 2V, 09/02/2020, 17:43. FINDINGS: Bones: Irregular fractures of the right pubis can be seen. No sacrum or coccyx fracture can be seen. Age-appropriate lower lumbar spine degenerative changes are noted. No suspicious lytic or blastic lesions are seen. Soft tissues: Visualized bowel gas pattern is normal. No suspicious soft tissue densities. IMPRESSION: Irregular fractures of the right pubis. Dictated by: Garo Garcia M.D. on 09/02/2020 at 17:13 Approved by: Garo Garcia M.D. on 09/02/2020 at 17:14
--- NOTE | 2020-09-02 17:08 | DI.RAD.S_ITS ---
PROCEDURE: XR LUMBAR SPINE 2-3V INDICATIONS: fall, pain on right hip, pelvis and lower back TECHNIQUE: 3 views of the lumbar spine were acquired. COMPARISON: [facility] [place], CR, XR LUMBAR SPINE 2 OR 3 VIEWS, 08/13/2018, 10:22. [facility], CR, XR PELVIS 1-2V, 03/01/2019, 18:13. [facility], CR, XR HIP W PEL IF DONE RT 2V, 09/02/2020, 17:43. [facility], CR, XR SACRUM COCCYX MIN 2V, 09/02/2020, 17:43. FINDINGS: Bones: 5 [id number] vertebrae are present. Mild dextroconvex scoliotic curvature is seen. There is grade 1 anterolisthesis at L5-S1. Associated pars defects are not well seen. There is a stable L2 fracture, with 20-30% loss of height anteriorly. No acute vertebral body compression fractures. No suspicious bony lesions. There is elvq-xr-[id number] loss of disc height seen at the L3-L4 level. Moderate to severe disc space narrowing is seen at L5-S1. Milder degenerative changes are seen elsewhere. Lower lumbar spine facet arthropathy is seen. Soft tissues: Overlying bowel gas pattern is normal. No suspicious soft tissue calcifications. Atherosclerotic calcification is noted. IMPRESSION: No acute lumbar fracture can be seen by plain film. Stable L2 anterior wedge deformity. Degenerative changes are seen, which are worst at L5-S1. Dictated by: Garo Garcia M.D. on 09/02/2020 at 17:10 Approved by: Garo Garcia M.D. on 09/02/2020 at 17:12
--- NOTE | 2020-09-02 17:08 | DI.RAD.S_ITS ---
PROCEDURE: XR HIP W PEL IF DONE RT 2V INDICATIONS: fall, pain on right hip, pelvis and lower back TECHNIQUE: AP pelvis with lateral view(s) of the right hip(s). COMPARISON: [facility], CR, XR PELVIS WITH LATERAL HIP LEFT, 08/13/2018, 10:19. [facility], CR, XR LUMBAR SPINE 2-3V, 09/02/2020, 17:43. [facility], CR, XR SACRUM COCCYX MIN 2V, 09/02/2020, 17:43. FINDINGS: Bones: Poorly defined fractures of the right pubis can be seen. No dislocations. Pelvic ring appears intact. No suspicious bony lesions. Age-appropriate lower lumbar spine degenerative changes are noted. Soft tissues: The visualized bowel gas pattern is normal. No suspicious soft tissue calcifications. IMPRESSION: Poorly defined fractures of the right pubis are seen. Dictated by: Garo Garcia M.D. on 09/02/2020 at 17:09 Approved by: Garo Garcia M.D. on 09/02/2020 at 17:10
[2020-09-02] MEDS: ACETAMINOPHEN 325 MG TABLET 650 MG PO (18:06)
[2020-09-02] MEDS: LIDOCAINE PATCH 1 EACH ADH..PATCH 2 EACH TOP (18:07)
--- NOTE | 2020-09-02 18:32 | CM.SWNOTE ---
ADVISORY INTERNSHIP note ADVISORY INTERNSHIP consult requested for patient. Patient is a 80 y/o female who presents to ED after a recent fall with increasing pain in hip. Patient reports to RN that she is in care of her who has significant mobility difficulties and her son, who has autism. Per RN, patient reports she receives minimal care giving support. ADVISORY INTERNSHIP enters room and meets with patient. Patient discusses care for and states that while she does have care giving support, that the support is more based on mobility and does not provide her any respite from ADL care giving for her . Patient expresses she is open to discussing additional support, but due to time and needing to catch ferry to [place], ADVISORY INTERNSHIP and patient agree to continue conversation in follow up call following week. Pl: ADVISORY INTERNSHIP to reach out to patient via phone following week to continue discussion of additional care giving support. TIAGO Page
--- NOTE | 2020-09-02 18:34 | ED.BACK ---
HPI - Back Pain/Injury <TARA Rothman - Last Filed: 09/02/20 19:48> General Chief Complaint: Back Pain/Injury Stated Complaint: HARD TIME WALKING FALL RIGHT HIP HEMATOMA Time Seen by Provider: 09/02/20 17:08 Source: patient Mode of arrival: Ambulatory (With a walker) Limitations: no limitations History of Present Illness HPI Narrative: This is a 80 year female, nonsmoker, who has past medical history significant for hyper lipidemia, hypertension presents to ED with chief complain of right hip, seat bone and low back pain since the fall. Patient reports she had ground level fall on 08/07/20 after tripped over and lost balance. She was evaluated in emergency room at that time with CT of head and C-spine test done and was discharged to home. Patient takes full dose of aspirin according to the patient with her primary care physician's recommendation. Patient reports she has been having difficult time walking and is using a walker at this time. Patient reports hematoma and bruise on right hip which appears to be improving. Patient reports intact sensation to bilateral foot. Patient denies tingling/weakness/numbness to lower extremities. Patient denies fever or rash in her back. Patient denies urinary symptoms. Patient has been using ibuprofen 400-600 mg 2 times a day to manage pain. 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 She receives caregivers assistance 6 days a week for a few hours a day but this has been difficult. Also she has a caregiver to autistic son at home but he does not require hip hop dance instructor assistance and he has been helping her with shopping and carrying things. Related Data Home Medications Medication Instructions Recorded Confirmed lovastatin 20 mg tablet 20 mg PO DAILY 04/27/19 04/27/19 lisinopril 20 mg tablet 20 mg PO DAILY 05/14/19 05/14/19 Previous Rx's Medication Instructions Recorded cyclobenzaprine 5 - 10 mg PO BID PRN #10 tab 09/02/20 hydrocodone-acetaminophen [Embudo] 1 tab PO TID PRN #14 tab 09/02/20 lidocaine 2 patch TOP DAILY PRN #30 each 09/02/20 Allergies Allergy/AdvReac Type Severity Reaction Status Date / Time clavulanic acid Allergy Unknown Verified 08/07/20 09:19 [CLAVULANIC ACID] nitrofurazone [NITROFURAZONE] Allergy Unknown Verified 08/07/20 09:19 Review of Systems <TARA Rothman - Last Filed: 09/02/20 19:48> Review of Systems Narrative: General: Denies fever, chills, fatigue, malaise, sweats. HEENT: Denies sinus pain, ear pain, sore throat, difficulty swallowing, dizziness. Respiratory: Denies dyspnea, cough, wheezing, hemoptysis, sputum. Cardiovascular: Denies chest pain, palpitations, orthopnea, edema. Gastrointestinal: Denies nausea, vomiting, abdominal pain, diarrhea, constipation, melena. : Denies dysuria, frequency, incontinence, hematuria, urinary retention. Musculoskeletal: See HPI Skin: Denies rash, skin lesions, or other. Neurologic: Denies weakness, headache, numbness, change in speech, confusion, seizures, incoordination. Psychiatric: No concerning psychosocial issues. 12-point review of systems is negative except for those stated above. Patient History <TARA Rothman - Last Filed: 09/02/20 19:48> Medical History Hyperlipidemia (Acute) Hypertension (Acute) Surgical History Status post appendectomy Status post tonsillectomy and adenoidectomy Social History Smoking Status: Never smoker Smoking Status: Never smoker alcohol intake frequency: 0-2 drinks per day Substance Use Type: does not use Exam <TARA Rothman - Last Filed: 09/02/20 19:48> Narrative Exam Narrative: GEN: Alert, oriented x 3, well appearing and nourished, and in no acute distress. Head: Normal cephalic, atraumatic. No scalp or temporal tenderness, palpable mass or rash. EYES: Pupils are equal, round, and reactive to light and accommodation. Extraocular muscles are intact bilaterally. There is no subconjunctival hemorrhage, exudate and sclera non-icteric. ENT: Bilateral auditory canals and tympanic membranes clear. Hearing grossly intact. Nose without bleeding, purulent discharge or deviation. Facial sinuses nontender to palpate. Mucous membrane moist, no mucosal lesion. Throat without erythema, tonsillar hypertrophy or exudate. Uvula in midline, airway patent. Neck: Trachea in midline. No JVD, non-tender without lymphadenopathy. No masses or thyroid megaly. Supple, non-tender and no meningeal signs. CARDIAC: Normal regular rate and rhythm without murmurs, gallops, or rubs. No chest wall tenderness. No peripheral edema, cyanosis or pallor. Capillary refill is less than 2 seconds. RESPIRATORY: Lungs are clear to auscultate bilaterally. No cough, wheezes, rales, or rhonchi. No stridor, respiratory distress, increase work of breathing, or accessary muscle used. ABD: Abdomen soft, nontender and non-distended. No guarding or rebound tenderness to palpate. Bowel sounds are normal in all 4 quadrants. There is no palpable masses or organomegaly. SKIN: Warm, dry, normal color for patient. Healing wound on forehead without signs of infection. No erythema, lesions or rash over visible areas. BACK: Lumbar region pain worsen right-sided without mass, deformity, redness, or warmth. No flank tenderness. NEUROLOGICAL: Alert and oriented to place, time and person. Sensation and motor function intact bilaterally. No facial droops, dysphasia. PSYCHIATRIC: Good judgement and reason, without hallucinations, abnormal affect or abnormal behaviors during the examination. Patient is not suicidal. Initial Vital Signs Initial Vital Signs: Vital Signs Temperature 98.6 F 09/02/20 15:08 Pulse Rate 80 09/02/20 15:08 Respiratory Rate 18 09/02/20 15:08 Blood Pressure 186/81 H 09/02/20 15:08 Pulse Oximetry 99 09/02/20 15:08 Extrem Right lower extremity: hip/thigh Details: tenderness Location: of the hip Location: laterally and posteromedially, swelling Location: at the hip (Right lateral), abnormal ROM Details: pain with active ROM during Details: with ADduction, with ABduction, with extension, with flexion, to internal rotation and to external rotation and pain with passive ROM during, ecchymosis (Light brown ecchymosis on right lateral hip) and other (slightly decreased strength on right lower extremity with plantar flexion and dorsal extention.) and foot Details: normal capillary refill, normal to inspection, toes with normal ROM, no edema, vascular exam Details: dorsalis pedis pulse present and normal capillary refill and motor-sensory exam Details: light-touch normal; no tenderness <Reza Olvera DO - Last Filed: 09/02/20 22:08> Initial Vital Signs Initial Vital Signs: Vital Signs Temperature 98.6 F 09/02/20 15:08 Pulse Rate 80 09/02/20 15:08 Respiratory Rate 18 09/02/20 15:08 Blood Pressure 186/81 H 09/02/20 15:08 Pulse Oximetry 99 09/02/20 15:08 Scores <[facility] - Last Filed: 09/02/20 19:48> GCS Mello coma scale eye opening: Spontaneous [place] coma scale verbal response: Orientated Mello coma scale motor response: Obey commands Mello coma scale total score: 15 Course <[facility] Harirson - Last Filed: 09/02/20 19:48> Orders Ordered: ED Orders 09/02/20 16:08 Consult to BALE COVERER - Slasher Machine Operator Stat 09/02/20 17:08 XR hip w pel if done RT 2V Stat XR lumbar spine 2-3V Stat XR sacrum coccyx min 2V Stat 09/02/20 18:55 Complete Blood Count AUTO DIFF Stat Comprehensive Metabolic Panel Stat Discontinued Medications Acetaminophen (Tylenol) 650 mg PO NOW ONE Stop: 09/02/20 17:36 Last Admin: 09/02/20 18:06 Dose: 650 mg Documented by: JAMEEL Hydrocodone Bitart/Acetaminophen (Vicodin 5/325 Prepack) 1 bottle MISC SEEINSTR ONE Stop: 09/02/20 19:22 Last Admin: 09/02/20 19:29 Dose: 1 bottle Documented by: JAMEEL Lidocaine (Lidoderm) 2 each TOP NOW ONE Stop: 09/02/20 17:36 Last Admin: 09/02/20 18:07 Dose: 2 each Documented by: JAMEEL Consultations Consultation #1: Dr. Banda consulted over the phone with xray test and physical findings on hip/pelvis and lumbar region. Dr. Banda informs this is non-surgical fracture and recommended for pain management and to f/u with [facility] orthopedist with Dr. Banda as needed. Vital Signs Vital signs: Vital Signs - 8 hr 09/02/20 15:08 09/02/20 17:00 09/02/20 17:30 Temperature 98.6 F Pulse Rate 80 74 67 Respiratory Rate 18 Blood Pressure 186/81 H 154/69 H 125/56 L Pulse Oximetry 99 99 99 09/02/20 18:01 09/02/20 18:30 09/02/20 18:54 Temperature Pulse Rate 68 72 69 Respiratory Rate Blood Pressure 199/84 H Pulse Oximetry 97 98 98 09/02/20 19:00 09/02/20 19:30 Temperature 97.5 F L Pulse Rate 65 65 Respiratory Rate 16 Blood Pressure 177/77 H 161/67 H Pulse Oximetry 97 98 <Reza Olvera DO - Last Filed: 09/02/20 22:08> Orders Ordered: ED Orders 09/02/20 16:08 Consult to BALE COVERER - Slasher Machine Operator Stat 09/02/20 17:08 XR hip w pel if done RT 2V Stat XR lumbar spine 2-3V Stat XR sacrum coccyx min 2V Stat 09/02/20 18:55 Complete Blood Count AUTO DIFF Stat Comprehensive Metabolic Panel Stat Discontinued Medications Acetaminophen (Tylenol) 650 mg PO NOW ONE Stop: 09/02/20 17:36 Last Admin: 09/02/20 18:06 Dose: 650 mg Documented by: JAMEEL Hydrocodone Bitart/Acetaminophen (Vicodin 5/325 Prepack) 1 bottle MISC SEEINSTR ONE Stop: 09/02/20 19:22 Last Admin: 09/02/20 19:29 Dose: 1 bottle Documented by: JAMEEL Lidocaine (Lidoderm) 2 each TOP NOW ONE Stop: 09/02/20 17:36 Last Admin: 09/02/20 18:07 Dose: 2 each Documented by: JAMEEL Vital Signs Vital signs: Vital Signs - 8 hr 09/02/20 15:08 09/02/20 17:00 09/02/20 17:30 Temperature 98.6 F Pulse Rate 80 74 67 Respiratory Rate 18 Blood Pressure 186/81 H 154/69 H 125/56 L Pulse Oximetry 99 99 99 09/02/20 18:01 09/02/20 18:30 09/02/20 18:54 Temperature Pulse Rate 68 72 69 Respiratory Rate Blood Pressure 199/84 H Pulse Oximetry 97 98 98 09/02/20 19:00 09/02/20 19:30 Temperature 97.5 F L Pulse Rate 65 65 Respiratory Rate 16 Blood Pressure 177/77 H 161/67 H Pulse Oximetry 97 98 MDM - Back Pain/Injury <JAIRO RothmanP - Last Filed: 09/02/20 19:48> Differential Diagnosis Differential diagnosis: Likely other (hip/pelvis fracture, lumbar fracture, lumbar strain, hip contusion) Medical Records Attestation: I reviewed the patient's medical records. Lab Data Attestation: I reviewed the patient's lab results. Result diagrams: 09/02/20 18:55 09/02/20 18:55 Labs: Lab Results 09/02/20 09/02/20 Range/Units 18:55 18:55 WBC 6.2 (4.5-11.0) X10^3/uL RBC 3.90 L (4.0-5.2) X10^6/uL Hgb 12.7 (12.0-16.0) g/dL Hct 38.1 (36-46) % MCV 97.8 (80-100) fL MCH 32.5 (26-34) PG MCHC 33.2 (30-36) % RDW 12.7 (11.6-14.8) % Plt Count 325 (150-400) X10^3/uL Neut % (Auto) 59.6 (50-75) % Lymph % (Auto) 18.2 L (25-40) % [place] % (Auto) 14.6 H (3-14) % Eos % (Auto) 6.2 H (2-4) % Baso % (Auto) 1.4 (0-2) % Neut # (Auto) 3700 (9319-6304) /uL Lymph # (Auto) 1100 (6504-6641) /uL [place] # (Auto) 900 (0-900) /uL Eos # (Auto) 400 (0-450) /uL Baso # (Auto) 100 (0-100) /uL Sodium 136 L (137-145) mmol/L Potassium 3.9 (3.4-5.1) mmol/L Chloride 100 (98-107) mmol/L Carbon Dioxide 32 (22-32) mmol/L BUN 22 H (7-17) mg/dL Creatinine 0.83 (0.52-1.04) mg/dL Estimated GFR > 60.0 (>60) mL/min BUN/Creatinine Ratio 26.5 H (6-22) Glucose 97 (80-110) mg/dL Calcium 9.1 (8.4-10.2) mg/dL Total Bilirubin 0.5 (0.2-1.3) mg/dL AST 71 H (14-36) IU/L ALT 90 H (<35) IU/L Alkaline Phosphatase 125 (38-126) U/L Total Protein 7.7 (6.3-8.2) g/dL Albumin 4.0 (3.5-5.0) g/dL Globulin 3.7 (1.7-4.1) g/dL Albumin/Globulin Ratio 1.1 (1.0-2.8) Urine Dip Bedside Urine Glucose Negative Bedside Urine Bilirubin - Negative Bedside Urine Ketone - Negative Urine Specific [place] 1.025 Bedside Urine Occult Blood +/- Bedside Urine pH 6.0 Bedside Urine Protein - Negative Bedside Urine Urobilinogen - Negative Bedside Urine Nitrite - Negative Bedside Urine Leukocytes - Negative Esterase Imaging Data XR-Hip: Radiologist's Impression: [address] [address] XRay Report Signed Patient: Sangeeta Roca [facility]#: [id number] : [id number]:[id number] Age/Sex: 80 / FDate of Service: 09/02/20 Loc: ED Accession Number: [id number] Procedure: XR hip w pel if done RT 2V Ordering Provider: Joann Cabrera D.O. PROCEDURE: XR HIP W PEL IF DONE RT 2V INDICATIONS: fall, pain on right hip, pelvis and lower back TECHNIQUE: AP pelvis with lateral view(s) of the right hip(s). COMPARISON: [facility], CR, XR PELVIS WITH LATERAL HIP LEFT, 08/13/2018, 10:19. [facility], CR, XR LUMBAR SPINE 2-3V, 09/02/2020, 17:43. [facility], CR, XR SACRUM COCCYX MIN 2V, 09/02/2020, 17:43. FINDINGS: Bones: Poorly defined fractures of the right pubis can be seen. No dislocations. Pelvic ring appears intact. No suspicious bony lesions. Age-appropriate lower lumbar spine degenerative changes are noted. Soft tissues: The visualized bowel gas pattern is normal. No suspicious soft tissue calcifications. IMPRESSION: Poorly defined fractures of the right pubis are seen. Dictated by: Garo Garcia M.D. on 09/02/2020 at 17:09 Approved by: Garo Garcia M.D. on 09/02/2020 at 17:10 XR Lumbar: Radiologist's Impression: Sangeeta Roca 80 F [address] [address] XRay Report Signed Patient: Sangeeta Roca [facility]#: [id number] : [id number]:[id number] Age/Sex: 80 / FDate of Service: 09/02/20 Loc: ED Accession Number: [id number] Procedure: XR lumbar spine 2-3V Ordering Provider: Joann Cabrera D.O. PROCEDURE: XR LUMBAR SPINE 2-3V INDICATIONS: fall, pain on right hip, pelvis and lower back TECHNIQUE: 3 views of the lumbar spine were acquired. COMPARISON: [facility] [place], CR, XR LUMBAR SPINE 2 OR 3 VIEWS, 08/13/2018, 10:22. [facility], CR, XR PELVIS 1-2V, 03/01/2019, 18:13. [facility], CR, XR HIP W PEL IF DONE RT 2V, 09/02/2020, 17:43. [facility], CR, XR SACRUM COCCYX MIN 2V, 09/02/2020, 17:43. FINDINGS: Bones: 5 [id number]-[id number] vertebrae are present. Mild dextroconvex scoliotic curvature is seen. There is grade 1 anterolisthesis at L5-S1. Associated pars defects are not well seen. There is a stable L2 fracture, with 20-30% loss of height anteriorly. No acute vertebral body compression fractures. No suspicious bony lesions. There is wtgn-dp-hvfnogey loss of disc height seen at the L3-L4 level. Moderate to severe disc space narrowing is seen at L5-S1. Milder degenerative changes are seen elsewhere. Lower lumbar spine facet arthropathy is seen. Soft tissues: Overlying bowel gas pattern is normal. No suspicious soft tissue calcifications. Atherosclerotic calcification is noted. IMPRESSION: No acute lumbar fracture can be seen by plain film. Stable L2 anterior wedge deformity. Degenerative changes are seen, which are worst at L5-S1. Dictated by: Garo Garcia M.D. on 09/02/2020 at 17:10 Approved by: Garo Garcia M.D. on 09/02/2020 at 17:12 XR-Sacrum: Radiologist's Impression: [address] [address] XRay Report Signed Patient: Sangeeta Roca [facility]#: [id number] : [id number] Age/Sex: 80 / FDate of Service: 09/02/20 Loc: ED Accession Number: [id number] Procedure: XR sacrum coccyx min 2V Ordering Provider: Joann Caberra D.O. PROCEDURE: XR SACRUM COCCYX MIN 2V INDICATIONS: fall, pain on right hip, pelvis and lower back TECHNIQUE: 3 views of the sacrum and coccyx acquired. COMPARISON: [facility], CR, XR PELVIS WITH LATERAL HIP LEFT, 08/13/2018, 10:19. [facility], CR, XR LUMBAR SPINE 2-3V, 09/02/2020, 17:43. [facility], CR, XR HIP W PEL IF DONE RT 2V, 09/02/2020, 17:43. FINDINGS: Bones: Irregular fractures of the right pubis can be seen. No sacrum or coccyx fracture can be seen. Age-appropriate lower lumbar spine degenerative changes are noted. No suspicious lytic or blastic lesions are seen. Soft tissues: Visualized bowel gas pattern is normal. No suspicious soft tissue densities. IMPRESSION: Irregular fractures of the right pubis. Dictated by: Garo Garcia M.D. on 09/02/2020 at 17:13 Approved by: Grao Garcia M.D. on 09/02/2020 at 17:14 MDM Narrative Medical decision making narrative: This is a 80-year-old female who return to ED today with chief complain of right hip, sit bone pain and low back pain after she was initially evaluated on 08/07/20 after a fall. Patient reports difficulty ambulating due to discomfort since the injury. She has been using a walker at home. Patient reports improving right hip hematoma and bruise. Hip and pelvis x-ray shows irregular fractures of right pubis without dislocation and intact pelvic ring. Also lumbar x-ray shows stable L2 fracture with 20-30% loss of height anteriorly. No acute vertebral body compression fracture appreciated. There is mild to moderate loss of disc height in L3-L4 And L5-S1. CBC shows stable H/H of 12.7/38.1. Test shows mild dehydration with elevated BUN of 22 and BUN/creatinine ratio of 26.5. Creatinine and estimated GFR is within normal limits. Slightly elevated AST (71) and ALT (90) which are actually improved from previous visit about a month ago. Otherwise unremarkable chemistry test. Urine test without cristo blood but small amount of occult blood with positive leuks and 5-10/hpf of WBC. Urine culture is pending. Dr. Banda consulted over the phone and recommended pain management and use a walker for ambulation and to follow-up at the clinic as needed. Findings were shared with patient and discharged to home with Embudo, lidocaine patch and Flexeril as needed for pain management with narcotic/muscle relaxant medication precautions. Patient advised not to take muscle relaxant and pain medication to get other to decrease sedation precautions. Patient verbalized understanding in agreement with treatment plan. <Reza Olvera, DO - Last Filed: 09/02/20 22:08> Lab Data Labs: Lab Results 09/02/20 09/02/20 Range/Units 18:55 18:55 WBC 6.2 (4.5-11.0) X10^3/uL RBC 3.90 L (4.0-5.2) X10^6/uL Hgb 12.7 (12.0-16.0) g/dL Hct 38.1 (36-46) % MCV 97.8 (80-100) fL MCH 32.5 (26-34) PG MCHC 33.2 (30-36) % RDW 12.7 (11.6-14.8) % Plt Count 325 (150-400) X10^3/uL Neut % (Auto) 59.6 (50-75) % Lymph % (Auto) 18.2 L (25-40) % [place] % (Auto) 14.6 H (3-14) % Eos % (Auto) 6.2 H (2-4) % Baso % (Auto) 1.4 (0-2) % Neut # (Auto) 3700 (6177-0101) /uL Lymph # (Auto) 1100 (3649-0048) /uL [place] # (Auto) 900 (0-900) /uL Eos # (Auto) 400 (0-450) /uL Baso # (Auto) 100 (0-100) /uL Sodium 136 L (137-145) mmol/L Potassium 3.9 (3.4-5.1) mmol/L Chloride 100 (98-107) mmol/L Carbon Dioxide 32 (22-32) mmol/L BUN 22 H (7-17) mg/dL Creatinine 0.83 (0.52-1.04) mg/dL Estimated GFR > 60.0 (>60) mL/min BUN/Creatinine Ratio 26.5 H (6-22) Glucose 97 (80-110) mg/dL Calcium 9.1 (8.4-10.2) mg/dL Total Bilirubin 0.5 (0.2-1.3) mg/dL AST 71 H (14-36) IU/L ALT 90 H (<35) IU/L Alkaline Phosphatase 125 (38-126) U/L Total Protein 7.7 (6.3-8.2) g/dL Albumin 4.0 (3.5-5.0) g/dL Globulin 3.7 (1.7-4.1) g/dL Albumin/Globulin Ratio 1.1 (1.0-2.8) Urine Dip Bedside Urine Glucose Negative Bedside Urine Bilirubin - Negative Bedside Urine Ketone - Negative Urine Specific [place] 1.025 Bedside Urine Occult Blood +/- Bedside Urine pH 6.0 Bedside Urine Protein - Negative Bedside Urine Urobilinogen - Negative Bedside Urine Nitrite - Negative Bedside Urine Leukocytes - Negative Esterase Discharge Plan Departure Patient Disposition: Home Clinical Impression: Closed fracture of pubis Qualifiers: Encounter type: initial encounter Sublocation of pubis: unspecified portion of pubis Laterality: right Qualified Code(s): S32.501A - Unspecified fracture of right pubis, initial encounter for closed fracture Fracture of lumbar spine Qualifiers: Encounter type: initial encounter Lumbar vertebra fracture level: L2 Fracture type: closed Fracture morphology: unspecified fracture morphology Qualified Code(s): S32.029A - Unspecified fracture of second lumbar vertebra, initial encounter for closed fracture Discharge Date/Time: 11/06/20 19:45 Instructions: DI for Pelvic Fracture, DI for Vertebral Fracture Activity Restrictions/Additional Instructions: You have been diagnosed with [right-sided pubis fracture and L2 stable fracture. These fractures do not require surgeries. In the meantime, pain management and use a walker for ambulation and fractures will heal as time goes by approximately in another month. Blood count is stable. Urine culture is pending and shows 1+ occult blood urine. If you require antibiotic medication treatment, you will receive a phone call from us. Chemistry test shows very mild hyponatremia and dehydration. Please hydrate well with water and sports drink for next couple of days.]. What to do: *Take your medications as directed. You can continue to take Tylenol and or Motrin as needed for discomfort for mild to moderate pain. Tylenol 650 mg up to 3 times a day as needed for pain. Ibuprofen 400-600 mg up to 3 times a day as needed for pain with food to decrease GI irritation. You can use lidocaine patch on affected site for pain as needed. Lidocaine patch stays on for 12 hours and off for 12 hours. Flexeril is muscle relaxant. You can take 0.5 - 1 tab twice a day as needed for muscle relaxant. For severe pain, you can take Embudo which is narcotic pain medication. 0.5 to 1 tab up to 3 times a day as needed for severe pain. This can cause drowsiness so please do not drive, drink alcohol, operate heavy equipments. It can also cause constipation so please take precaution as we discussed. Try to avoid taking Embudo and Flexeril at the same time. *Follow up with your primary care provider/[facility] orthopedist in 2-3 days, call for an appointment. Let them know you were seen in the ED and that we asked you to be seen in follow up. *Return to ED if you have any new, worsening, or concerning symptoms, such as [worsening pain, blood in your urine, tingling/numbness/weakness to bilateral legs, chest pain, breathing difficulty, unable to tolerate fluids, or any acute concerns]. Prescriptions: New hydrocodone-acetaminophen [Embudo] 5-325 mg tablet 1 tab PO TID PRN (Reason: pain) Qty: 14 RF: 0 cyclobenzaprine 10 mg tablet 5 - 10 mg PO BID PRN (Reason: muscle spasm) Qty: 10 RF: 0 lidocaine 5 % adhesive patch,medicated 2 patch TOP DAILY PRN (Reason: pain) Qty: 30 RF: 0 No Action lovastatin 20 mg tablet 20 mg PO DAILY RF: 0 lisinopril 20 mg tablet 20 mg PO DAILY RF: 0 Referrals: [facility] [Provider Group] Bo Henson MD [Primary Care Provider] - <Reza Olvera DO - Last Filed: 09/02/20 22:08> Cosign ED Attending Cosbubbaature Attestation: I was immediately available in the department for consultation. This documentation has been reviewed and I agree with assessment and plan. Supervised by Reza Olvera DO
[2020-09-02 19:03] LABS: Add Manual Diff / Slide Review NO; Basophils Absolute Auto 100 /uL (0-100); Basophils Percent Auto 1.4 % (0-2); Eosinophils Absolute Auto 400 /uL (0-450); Eosinophils Percent Auto 6.2 % (2-4); Hematocrit 38.1 % (36-46); Hemoglobin 12.7 g/dL (12.0-16.0); Lymphocytes Absolute Auto 1100 /uL (1100-4500); Lymphocytes Percent Auto 18.2 % (25-40); Mean Corpuscular HGB Conc 33.2 % (30-36); Mean Corpuscular Hemoglobin 32.5 PG (26-34); Mean Corpuscular Volume 97.8 fL (80-100); Monocytes Absolute Auto 900 /uL (0-900); Monocytes Percent Auto 14.6 % (3-14); Neutrophils Absolute Auto 3700 /uL (1500-7000); Neutrophils Percent Auto 59.6 % (50-75); Platelet Count 325 X10^3/uL (150-400); Red Cell Distribution Width 12.7 % (11.6-14.8); White Blood Cell Count 6.2 X10^3/uL (4.5-11.0)
[2020-09-02] MEDS: HYDROCODONE/ACET 5/325 PREPACK 1 BOTTLE MISC (19:29)
[2020-09-02 19:35] LABS: Alanine Aminotransferase 90 IU/L (<35); Albumin Globulin Ratio 1.1 (1.0-2.8); Alkaline Phosphatase 125 U/L (38-126); Aspartate Aminotransferase 71 IU/L (14-36); BUN Creatinine Ratio 26.5 (6-22); Bilirubin Total 0.5 mg/dL (0.2-1.3); Blood Urea Nitrogen 22 mg/dL (7-17); Calcium 9.1 mg/dL (8.4-10.2); Carbon Dioxide 32 mmol/L (22-32); Chloride 100 mmol/L (98-107); Estimated Glomerular Filt Rate > 60.0 mL/min (>60); Globulin 3.7 g/dL (1.7-4.1); Glucose 97 mg/dL (80-110); HEMOLYSIS 24 (0-50); Potassium 3.9 mmol/L (3.4-5.1); Sodium 136 mmol/L (137-145); Total Protein 7.7 g/dL (6.3-8.2)
== END 2020-09-02 19:45 | disposition home or self-care (01) ==
PROVIDERS: Emergency Provider Nurse Practitioner Family; Family Provider Family Medicine; PCP Family Medicine
DX: S32.501A Unspecified fracture of right pubis, initial encounter for closed fracture (principal); S32.029A Unspecified fracture of second lumbar vertebra, initial encounter for closed fracture; S70.01XA Contusion of right hip, initial encounter; W19.XXXA Unspecified fall, initial encounter; I10 Essential (primary) hypertension; E78.5 Hyperlipidemia, unspecified
CPT/HCPCS: 72100; 72220; 73502; 80053; 81003; 85025; 99284

== ENCOUNTER → 2021-06-19 12:14 | Outpatient (CLI) | payer MEDICARE, SELFPAY ==
[2021-06-19 21:40] LABS: COVID19 - ORCAS (NP or Nasal) Negative (Negative)
== END ==
PROVIDERS: Family Provider Family Medicine; PCP Family Medicine; Visit Provider Physician Assistant
DX: Z20.822 Contact with and (suspected) exposure to COVID-19 (principal)
CPT/HCPCS: C9803; U0003

== ENCOUNTER → 2024-08-06 11:08 | Outpatient (CLI) | payer MEDICARE, SELFPAY ==
--- NOTE | 2024-08-06 11:11 | DI.US.S_ITS ---
PROCEDURE: US ARTERIAL DUPLEX LE LT INDICATIONS: LEFT LEG PAIN TECHNIQUE: Color and pulse Doppler interrogation was performed of the left lower extremity arterial system, with image documentation. COMPARISON: None. FINDINGS: Common femoral artery: 150 cm/sec, with triphasic flow. Deep femoral artery: 125 cm/sec, with biphasic flow. Proximal superficial femoral artery: 126 cm/sec, with triphasic flow. Mid superficial femoral artery: 128 cm/sec, with biphasic flow. Distal superficial femoral artery: 128 cm/sec, with triphasic flow. Popliteal artery: 86 cm/sec, with triphasic flow. Posterior tibial artery: 59 cm/sec, with biphasic flow. Anterior tibial artery/dorsalis pedis: 56 cm/sec, with biphasic flow. Grover-scale imaging description: Moderate degree of calcified plaque involving the distal left common femoral artery resulting in < 20% stenosis. Mild multifocal partially calcified plaque throughout the proximal profunda femoris, mid SFA, popliteal artery and posterior tibial artery without significant stenosis. IMPRESSION: < 20% stenosis involving distal left common femoral artery. No significant stenosis involving left lower extremity arterial system. Dictated by: Fredo Corrales M.D. on 08/06/2024 at 13:21 Approved by: Fredo Corrales M.D. on 08/06/2024 at 13:24
--- NOTE | 2024-08-06 11:12 | DI.RAD.S_ITS ---
PROCEDURE: XR FEMUR RT MIN 2V INDICATIONS: PAIN IN RIGHT LEG TECHNIQUE: 2 views of the femur were acquired. COMPARISON: None. FINDINGS: Bones: IM lalo and screws transfix a intertrochanteric fracture of the right hip which is incompletely united. A lesser trochanteric fragment displaced less than 1 cm medially. Non unified old fracture of the right pubic symphysis noted Joints: Mild right hip degeneration appreciated. There is moderate patellofemoral and lateral tibial femoral degeneration. Soft tissues: No soft tissue abnormality. IMPRESSION: Incompletely unified intertrochanteric fracture right hip. Degeneration Dictated by: Jv Montgomery M.D. on 08/07/2024 at 8:49 Approved by: Jv Montgomery M.D. on 08/07/2024 at 8:51
== END ==
PROVIDERS: Family Provider Family Medicine; PCP Family Medicine; Referring Provider Family Medicine; Visit Provider Family Medicine
DX: I70.202 Unspecified atherosclerosis of native arteries of extremities, left leg (principal); M16.11 Unilateral primary osteoarthritis, right hip; M17.11 Unilateral primary osteoarthritis, right knee; S72.141S Displaced intertrochanteric fracture of right femur, sequela; M79.604 Pain in right leg; R94.39 Abnormal result of other cardiovascular function study
CPT/HCPCS: 73552; 93926

== ENCOUNTER 2024-08-07 09:46 | Day surgery (SDC) | payer MEDICARE, SELFPAY ==
[2024-08-07 10:38] VITALS: BP 130/69; PULSE 76; RESP 12; TEMP 37.6; O2SAT 98; BMI 20.1
[2024-08-07] MEDS: LACTATED RINGERS 1,000 ML 42 ML IV (10:50)
[2024-08-07] MEDS: ACETAMINOPHEN 325 MG TABLET 975 MG PO (10:52)
--- NOTE | 2024-08-07 11:05 | PM.GYNHP.1 ---
History of Present Illness History of Present Illness Reason for admission: other (retained pessary, vaginal bleeding ) Narrative: Sangeeta Roca is an 84yo postmenopausal female presents for scheduled outpatient procedure, EUA with removal of pessary after inadequate maintenance for approximately 2 years. Patient was last see in office early March 2024 for same. At time of exam severe vaginal stenosis made attempts at office removal intolerable and pt was scheduled for same under sedations vs anesthesia. Procedure scheduling delayed due to pt temporary residence in SNF/rehab following otrhopedic injury. Pt today states that she continues to have light vaginal bleeding as well as incontinece. She does not feel that her symptoms have changed any since time of last office encounter. Patient was concerned in preoperative area when we discussed that pessary will not be replaced today, however in discussion she understands that this may not be a modality of management for her moving forward pending intraoperative findings and can reassess at time of routine postop outpatient follow-up, however anticipate that POP will be obviated by degree of vaginal stenosis. Pt affirms desire to proceed with procedure as scheduled [facility], [facility] Medical History (Updated 04/08/24 @ 07:44 by Joesline Jackson MD) Problem with vaginal pessary Hypertension Hyperlipidemia Surgical History Status post tonsillectomy and adenoidectomy Status post appendectomy Social History household members: spouse and children Smoking Status: Never smoker Meds Home Medications and Allergies Home Medications Medication Instructions Recorded Confirmed Type lovastatin 20 mg tablet 20 mg PO DAILY 04/27/19 08/07/24 History lidocaine 5 % topical patch 2 patch topical DAILY PRN pain #30 09/02/20 08/07/24 Rx ea losartan 50 mg tablet 50 mg PO DAILY 04/07/24 08/07/24 History amlodipine 5 mg tablet 5 mg PO DAILY 08/07/24 08/07/24 History hydroxyzine HCl 50 mg PO QAM 08/07/24 08/07/24 History Allergies Allergy/AdvReac Type Severity Reaction Status Date / Time clavulanic acid Allergy Unknown Verified 08/07/24 10:16 [CLAVULANIC ACID] nitrofurazone [NITROFURAZONE] Allergy Unknown Verified 08/07/24 10:16 Review of Systems Review of Systems ROS: Yes All systems reviewed with the patient and are negative except as otherwise documented Exam Vital Signs (past 8 hours): - 08/07/24 10:38 Temperature 99.7 F H Pulse Rate 76 Respiratory Rate 12 Blood Pressure 130/69 Pulse Oximetry 98 Oxygen Delivery Method Room Air Oxygen Delivery Method Room Air Assessment & Plan Assessment and plan (1) Problem with vaginal pessary: Qualifiers: Encounter type: initial encounter Qualified Code(s): T83.9XXA - Unspecified complication of genitourinary prosthetic device, implant and graft, initial encounter Status: Acute Plan 84yo postmenopausal female presents for scheduled outpatient procedure, EUA with removal of pessary after inadequate maintenance for approximately 2 years Pt affirms desire to proceed with procedure as scheduled anticipate routine f/u in office as scheduled dispo: to OR Time-Based Coding :: [TOTAL MINUTES] spent with patient and on the chart (including review of chart, obtaining history, exam, reviewing outside data, placing orders, documenting exam and treatment plan, and counseling patient) on [DATE].
--- NOTE | 2024-08-07 11:05 | PM.PREOP ---
Pre-operative Note Interval Note History & Physical reviewed/Exam performed by Physician: Yes Changes to H&P: No H&P completed within 30 days and has changed as indicated here:: 08/07/24 ASA Class (for procedural sedation): II
--- NOTE | 2024-08-07 11:43 | SUR.OPER ---
Addendum entered by Bonny Smith R.N. 08/07/24 11:48: Right arm across chest secured with draw sheet and clip. Safety strap across abdomen. Original Note: Lithotomy on padded OR bed, head on pillow, left arm secured on padded arm board at <90 degrees abduction. right arm across chest. Legs secured in padded yellow fins stirrups.
--- NOTE | 2024-08-07 11:53 | PM.OP.1 ---
Operative Date/Time/Diagnoses Date of procedure: 08/07/24 Time of procedure: 11:53 Pre-op diagnosis: postmenopausal bleeding, retained pessary Post-op diagnosis: same Procedure & Clinicians Procedure: exam under anesthesia, pessary maintenance Same procedure as scheduled: Yes Indications: retained pessary with postmenopausal bleeding Surgeon: Joseline Jackson Click Yes if Unassisted: Yes Anesthesia Type: General Operative Notes Findings: normal external female genitalia stenotic vaginal introitus ring platform pessary, rigid secondary to prolonged retention vaginal epithelium visualized circumferentially without evidence of significant injury, erosion or defect Estimated Blood Loss (mL): 1 Blood products transfused: none Procedure in detail: Pt was taken to the operating room, transferred to OR table and anesthesia was induced with placement of LMA.? Pt had her legs placed in Fredo stirrups and exam under anesthesia was performed.? The patient was prepped and draped in a sterile fashion.? A time out was performed.? The pessary was palpated within the vagina. The pessary was grasped using the single tooth tenaculum, and the device was transected using albarran scissors taking great care protect the vaginal albright. With incision of the device's outer ring at 12 and 6 o'clock along with transection of the platform membrane the device was able to gently be removed from the vagina in an atraumatic fashion. Vaginal epithelium was systematically inspected without appreciable injury. The vagina was wiped clean of reactive discharge. Superficial abrasion of posterior fourchette and periurethra secondary to localized trauma without active bleeding noted. Counts correct x2. The patient then had her legs taken out of stirrups.? The patient tolerated the procedure well and without difficulty.? The patient was awakened from anesthesia and taken to PACU in stable condition. Complications: none Post-operative Condition: stable Disposition: PACU Plan for aftercare: anticipate dc to home routine postop f/u in office as scheduled
[2024-08-07 12:00] VITALS: BP 112/45; PULSE 78; RESP 16; TEMP 36.4; O2SAT 97
[2024-08-07 12:05] VITALS: BP 112/50; PULSE 79; RESP 18; O2SAT 96
[2024-08-07 12:15] VITALS: BP 129/51; PULSE 78; RESP 16; TEMP 36.2; O2SAT 98
[2024-08-07 12:35] VITALS: BP 130/69; PULSE 74; RESP 16; TEMP 36.8; O2SAT 97
== END 2024-08-07 12:35 | disposition home or self-care (01) ==
PROVIDERS: Family Provider Family Medicine; PCP Family Medicine; Referring Provider Obstetrics & Gynecology; Visit Provider Obstetrics & Gynecology
PROC: (CPT 57410; principal; 2024-08-07 11:45)
DX: N89.5 Stricture and atresia of vagina (principal); T83.9XXA Unspecified complication of genitourinary prosthetic device, implant and graft, initial encounter; N95.0 Postmenopausal bleeding
CPT/HCPCS: 57415; J2405; J2704